=== PATIENT | male | born 2000 | race Caucasian/White ===

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

== ENCOUNTER 2021-01-02 15:12 | Emergency (ER) | payer OTHER ==
[~2021-01-02] VITALS: Ht 170.1 cm; Wt 63.5 kg
[~2021-01-02 15:12] MED LIST changes: +CITALOPRAM HYDR10 MG PO; +HYDROXYZINE PAM25 M1 PO; +OMEPRAZOLE40 MG PO
[2021-01-02 16:39] LABS: BILIRUBIN Negative (Negative); BLOOD 3+ (Negative); CLARITY Clear (Clear); COLOR Yellow (Yellow); GLUCOSE Negative (Negative); KETONE Negative (Negative); LEUKO ESTERASE 2+ (Negative); NITRITE Negative (Negative); PH 5.5 (4.5-8.0); SPECIFIC GRAVITY 1.015 (1.001-1.030)
[2021-01-02 16:43] LABS: HEMATOCRIT 36.7 % (42.0-52.0); MEAN CELL VOLUME 89.5 fl (80.0-94.0); MEAN CORPUSCULAR HGB 29.8 pg (27.0-31.0); MEAN CORPUSCULAR HGB CONC 33.2 g/dl (33.0-37.0); MEAN PLATELET VOLUME 9.4 fl (9.6-12.3); PLATELET COUNT AUTOMATED 207 10*3/uL (130-400); RED CELL DISTRI WIDTH 13.6 % (0-14.5); WHITE BLOOD COUNT 14.7 10*3/uL (4.8-10.8)
[2021-01-02 16:45] LABS: RBC TNTC rbc/hpf (0-2)
[2021-01-02 16:49] LABS: URINE AMPHETAMINES < 1000 (1000ng/ml); URINE BARBITURATES < 200 (200ng/ml); URINE BENZODIAZEPINES < 200 (200ng/ml); URINE CANNABINOIDS (THC) > 50 (50ng/ml); URINE COCAINE < 300 (300ng/ml); URINE METHADONE < 300 (300ng/ml); URINE OPIATES < 300 (300ng/ml)
[2021-01-02 16:50] LABS: URINE PHENCYCLIDINE < 25 (25ng/ml)
[2021-01-02 17:01] LABS: ALBUMIN 2.8 gm/dl (3.1-4.5); BUN 29 mg/dl (7-24); CHLORIDE 106 mmol/L (98-107); CREATININE 1.17 mg/dL (0.70-1.30); POTASSIUM 3.6 mmol/L (3.5-5.1); SGOT/AST 10 IU/L (3-35); SGPT/ALT 35 U/L (12-78); SODIUM 142 mmol/L (136-145); TOTAL PROTEIN 5.6 gm/dL (6.4-8.2)
[2021-01-02 17:03] LABS: ALKALINE PHOSPHATASE 73 U/L (45-117); CPK 19 U/L (39-308)
[2021-01-02 17:08] LABS: ACETAMINOPHEN (TYLENOL) < 5.0 ug/ml (10-30); ETHYL ALCOHOL < 3.0 mg/dl (<3)
[2021-01-02 17:24] LABS: ATYPICAL LYMPHS 2 % (0-0); TOTAL CELLS COUNTED 100 #CELLS
[2021-01-02 17:25] LABS: ACANTHOCYTES FEW; PLATELET SUFFICIENCY NORMAL (NORMAL)
== END 2021-01-02 18:48 | disposition home or self-care (01) ==
LOC: ED 15:12
PROVIDERS: Emergency Medicine
DX: F25.9 Schizoaffective disorder, unspecified (principal)

== ENCOUNTER → 2021-01-16 | Outpatient (CLI) | payer OTHER ==
[~2021-01-16] MED LIST changes: +BUSPIRONE15 MG PO; +DEPAKOTE DR500 MG PO; +GEODON60 MG PO; +TRAZODONE100 MG PO
[2021-01-16 08:07] LABS: HEMATOCRIT 40.7 % (42.0-52.0); MEAN CELL VOLUME 88.9 fl (80.0-94.0); MEAN CORPUSCULAR HGB 30.3 pg (27.0-31.0); MEAN CORPUSCULAR HGB CONC 34.2 g/dl (33.0-37.0); MEAN PLATELET VOLUME 8.9 fl (9.6-12.3); RED BLOOD COUNT 4.58 10*6/uL (4.50-5.90); RED CELL DISTRI WIDTH 13.9 % (0-14.5); WHITE BLOOD COUNT 13.9 10*3/uL (4.8-10.8)
[2021-01-16 08:38] LABS: ALBUMIN 3.4 gm/dl (3.1-4.5); BUN 27 mg/dl (7-24); CHLORIDE 103 mmol/L (98-107); CREATININE 0.84 mg/dL (0.70-1.30); POTASSIUM 3.6 mmol/L (3.5-5.1); SGOT/AST 10 IU/L (3-35); SGPT/ALT 38 U/L (12-78); SODIUM 138 mmol/L (136-145)
[2021-01-16 08:46] LABS: ALKALINE PHOSPHATASE 67 U/L (45-117); THYROID STIM HORMONE (HS) 0.889 uIU/ml (0.358-4.75)
== END | disposition home or self-care (01) ==
LOC: LAB 07:35
PROVIDERS: ATTEND Family Medicine
DX: N20.0 Calculus of kidney (principal); F41.1 Generalized anxiety disorder; F43.8 Other reactions to severe stress; R33.9 Retention of urine, unspecified; E24.9 Cushing's syndrome, unspecified

== ENCOUNTER → 2021-01-27 | Outpatient (CLI) | payer OTHER ==
[2021-01-27 12:38] LABS: HEMATOCRIT 40.9 % (42.0-52.0); MEAN CELL VOLUME 89.1 fl (80.0-94.0); MEAN CORPUSCULAR HGB 30.3 pg (27.0-31.0); MEAN PLATELET VOLUME 8.8 fl (9.6-12.3); RED BLOOD COUNT 4.59 10*6/uL (4.50-5.90); RED CELL DISTRI WIDTH 13.3 % (0-14.5); WHITE BLOOD COUNT 16.5 10*3/uL (4.8-10.8)
[2021-01-28 04:06] LABS: PROLACTIN 40.7 ng/mL (4.0-15.2); THYROID PEROXIDASE (TPO) AB <8 IU/mL (0-26)
[2021-01-28 15:07] LABS: THYROGLOBULIN ANTIBODY <1.0 IU/mL (0.0-0.9)
== END | disposition home or self-care (01) ==
LOC: LAB 11:55
PROVIDERS: ATTEND Family Medicine
DX: D72.829 Elevated white blood cell count, unspecified (principal)

== ENCOUNTER → 2021-01-29 | Outpatient (CLI) | payer OTHER ==
[2021-01-29 09:10] LABS: BILIRUBIN Negative (Negative); BLOOD 1+ (Negative); CLARITY Turbid (Clear); COLOR Yellow (Yellow); GLUCOSE Negative (Negative); KETONE Negative (Negative); LEUKO ESTERASE Negative (Negative); NITRITE Negative (Negative); PH 7.5 (4.5-8.0); SPECIFIC GRAVITY 1.015 (1.001-1.030)
[2021-01-29 09:40] LABS: ALBUMIN 3.3 gm/dl (3.1-4.5); ALKALINE PHOSPHATASE 70 U/L (45-117); BUN 14 mg/dl (7-24); CHLORIDE 105 mmol/L (98-107); CREATININE 0.74 mg/dL (0.70-1.30); POTASSIUM 3.1 mmol/L (3.5-5.1); SGOT/AST 8 IU/L (3-35); SGPT/ALT 41 U/L (12-78); SODIUM 141 mmol/L (136-145); T3 UPTAKE 34 % (31-39); THYROXINE (T4) TOTAL 7.9 ug/dl (4.5-12.1)
[2021-01-29 09:45] LABS: HEMATOCRIT 40.8 % (42.0-52.0); MEAN CELL VOLUME 89.3 fl (80.0-94.0); MEAN CORPUSCULAR HGB 30.4 pg (27.0-31.0); MEAN CORPUSCULAR HGB CONC 34.1 g/dl (33.0-37.0); MEAN PLATELET VOLUME 9.1 fl (9.6-12.3); PLATELET COUNT AUTOMATED 301 10*3/uL (130-400); RED BLOOD COUNT 4.57 10*6/uL (4.50-5.90); RED CELL DISTRI WIDTH 13.4 % (0-14.5); WHITE BLOOD COUNT 15.3 10*3/uL (4.8-10.8)
[2021-01-29 11:08] LABS: TOTAL CELLS COUNTED 100 #CELLS
[2021-01-29 11:09] LABS: PLATELET SUFFICIENCY NORMAL (NORMAL); POLYCHROMASIA SLIGHT
== END | disposition home or self-care (01) ==
LOC: LAB 08:49
PROVIDERS: ATTEND Urology
DX: N20.0 Calculus of kidney (principal); R31.9 Hematuria, unspecified

== ENCOUNTER 2021-01-30 12:13 | Emergency (ER) | payer OTHER ==
[~2021-01-30] VITALS: Ht 167.6 cm; Wt 81.6 kg
[~2021-01-30 12:13] MED LIST changes: -BUSPIRONE15 MG PO; -DEPAKOTE DR500 MG PO; -GEODON60 MG PO; -TRAZODONE100 MG PO
[2021-01-30] MEDS ORDERED: GEODON60 MG PO (12:39)
[2021-01-30] MEDS ORDERED: TRAZODONE100 MG PO (12:40)
[2021-01-30] MEDS ORDERED: BUSPIRONE15 MG PO (12:40)
[2021-01-30] MEDS ORDERED: DEPAKOTE DR500 MG PO (12:40)
[2021-01-30 13:04] LABS: HEMATOCRIT 42.4 % (42.0-52.0); MEAN CELL VOLUME 91.8 fl (80.0-94.0); MEAN CORPUSCULAR HGB 30.5 pg (27.0-31.0); MEAN CORPUSCULAR HGB CONC 33.3 g/dl (33.0-37.0); MEAN PLATELET VOLUME 8.9 fl (9.6-12.3); PLATELET COUNT AUTOMATED 270 10*3/uL (130-400); RED BLOOD COUNT 4.62 10*6/uL (4.50-5.90); RED CELL DISTRI WIDTH 13.5 % (0-14.5); WHITE BLOOD COUNT 15.5 10*3/uL (4.8-10.8)
[2021-01-30 13:22] LABS: ALBUMIN 3.3 gm/dl (3.1-4.5); BUN 20 mg/dl (7-24); CHLORIDE 107 mmol/L (98-107); CREATININE 0.84 mg/dL (0.70-1.30); SGOT/AST 10 IU/L (3-35); SGPT/ALT 41 U/L (12-78); SODIUM 143 mmol/L (136-145)
[2021-01-30 13:23] LABS: BURR CELLS FEW; PLATELET SUFFICIENCY NORMAL (NORMAL); POLYCHROMASIA SLIGHT; TOTAL CELLS COUNTED 100 #CELLS
[2021-01-30 13:24] LABS: ALKALINE PHOSPHATASE 75 U/L (45-117); TOTAL PROTEIN 6.1 gm/dL (6.4-8.2)
[2021-01-30 13:36] LABS: CPK 17 U/L (39-308)
[2021-01-30 13:40] LABS: URINE AMPHETAMINES < 1000 (1000ng/ml); URINE BARBITURATES < 200 (200ng/ml); URINE BENZODIAZEPINES < 200 (200ng/ml); URINE CANNABINOIDS (THC) > 50 (50ng/ml); URINE COCAINE < 300 (300ng/ml); URINE METHADONE < 300 (300ng/ml); URINE OPIATES < 300 (300ng/ml)
[2021-01-30 13:41] LABS: URINE PHENCYCLIDINE < 25 (25ng/ml)
[2021-01-30 13:41] LABS: ETHYL ALCOHOL < 3.0 mg/dl (<3)
[2021-01-30 15:34] LABS: BILIRUBIN Negative (Negative); BLOOD Trace-Intact (Negative); CLARITY Cloudy (Clear); COLOR Yellow (Yellow); GLUCOSE Negative (Negative); KETONE Trace (Negative); LEUKO ESTERASE Negative (Negative); NITRITE Negative (Negative); PH 6.5 (4.5-8.0)
[2021-01-30 15:41] LABS: BACTERIA 1+; EPITHELIAL CELLS 0-2; FINE GRANULAR CAST 0-2
[2021-01-30 15:42] LABS: MUCOUS 3+
== END 2021-01-31 03:11 ==
LOC: ED 12:13
PROVIDERS: Emergency Medicine; Nurse Practitioner Family
DX: F25.9 Schizoaffective disorder, unspecified (principal); Z20.822 Contact with and (suspected) exposure to COVID-19; F32.9 Major depressive disorder, single episode, unspecified

== ENCOUNTER → 2021-02-04 | Outpatient (CLI) | payer OTHER ==
[~2021-02-04] MED LIST changes: +BUSPIRONE15 MG PO; +DEPAKOTE DR500 MG PO; +GEODON60 MG PO; +TRAZODONE100 MG PO
== END | disposition home or self-care (01) ==
LOC: MRI 12:36
PROVIDERS: ATTEND Family Medicine
DX: E22.1 Hyperprolactinemia (principal)

== ENCOUNTER → 2021-02-11 | Outpatient (CLI) | payer OTHER | END | disposition home or self-care (01) | LOC: US 02-03 09:00 → LAB 11:05 | PROVIDERS: ATTEND Urology | DX: N13.30 Unspecified hydronephrosis (principal); N20.0 Calculus of kidney; R31.9 Hematuria, unspecified ==

== ENCOUNTER 2021-02-24 09:58 | Emergency (ER) | payer OTHER ==
[~2021-02-24] VITALS: Ht 165.1 cm; Wt 81.6 kg
[2021-02-24 10:19] LABS: HEMATOCRIT 41.8 % (42.0-52.0); MEAN CELL VOLUME 88.9 fl (80.0-94.0); MEAN CORPUSCULAR HGB 30.4 pg (27.0-31.0); MEAN CORPUSCULAR HGB CONC 34.2 g/dl (33.0-37.0); MEAN PLATELET VOLUME 8.9 fl (9.6-12.3); PLATELET COUNT AUTOMATED 230 10*3/uL (130-400); RED CELL DISTRI WIDTH 12.4 % (0-14.5); WHITE BLOOD COUNT 15.9 10*3/uL (4.8-10.8)
[2021-02-24 10:35] LABS: ALKALINE PHOSPHATASE 67 U/L (45-117); BUN 12 mg/dl (7-24); CHLORIDE 106 mmol/L (98-107); CREATININE 0.59 mg/dL (0.70-1.30); POTASSIUM 3.5 mmol/L (3.5-5.1); SGOT/AST 4 IU/L (3-35); SGPT/ALT 38 U/L (12-78); SODIUM 143 mmol/L (136-145); TOTAL PROTEIN 5.8 gm/dL (6.4-8.2)
[2021-02-24 10:38] LABS: ATYPICAL LYMPHS 1 % (0-0); BURR CELLS FEW; PLATELET SUFFICIENCY NORMAL (NORMAL); POLYCHROMASIA SLIGHT; TOTAL CELLS COUNTED 100 #CELLS
[2021-02-24 10:42] LABS: ACETAMINOPHEN (TYLENOL) < 5.0 ug/ml (10-30); ETHYL ALCOHOL < 3.0 mg/dl (<3)
[2021-02-24 11:18] LABS: BILIRUBIN Negative (Negative); BLOOD Negative (Negative); CLARITY Turbid (Clear); COLOR Yellow (Yellow); GLUCOSE Negative (Negative); KETONE Negative (Negative); LEUKO ESTERASE Negative (Negative); NITRITE Negative (Negative); SPECIFIC GRAVITY 1.015 (1.001-1.030)
[2021-02-24 11:24] LABS: PH > 8.0 (4.5-8.0)
[2021-02-24 11:33] LABS: RBC 0-2 rbc/hpf (0-2); WBC 0-2 wbc/hpf (0-5)
[2021-02-24 12:02] LABS: URINE AMPHETAMINES < 1000 (1000ng/ml); URINE BARBITURATES < 200 (200ng/ml); URINE BENZODIAZEPINES < 200 (200ng/ml); URINE CANNABINOIDS (THC) < 50 (50ng/ml); URINE COCAINE < 300 (300ng/ml); URINE METHADONE < 300 (300ng/ml); URINE OPIATES < 300 (300ng/ml)
[2021-02-24 12:09] LABS: URINE PHENCYCLIDINE < 25 (25ng/ml)
== END 2021-02-24 11:11 | disposition home or self-care (01) ==
LOC: ED 09:58
PROVIDERS: Student in an Organized Health Care Education/Training Program
DX: F25.9 Schizoaffective disorder, unspecified (principal)

== ENCOUNTER → 2021-03-05 | Outpatient (CLI) | payer OTHER | END | disposition home or self-care (01) | LOC: LAB 08:01 | PROVIDERS: ATTEND Internal Medicine | DX: E27.0 Other adrenocortical overactivity (principal); N20.0 Calculus of kidney ==

== ENCOUNTER → 2021-03-11 | Outpatient (CLI) | payer OTHER ==
[2021-03-18 18:07] LABS: BUSHITE 3.79 ratio (0.00-3.00); CALCIUM OXALATE 3.55 ratio (0.00-6.00); CALCIUM, URINE 11.8 mg/dL (Not Estab.); CALCIUM, URINE 283.2 mg/24 hr (0.0-320.0); CITRIC ACID (CITRATE) 163 mg/24 hr (320-1240); MAGNESIUM, URINE 3.2 mg/dL (Not Estab.); MONOSODIUM URATE 8.37 ratio (0.00-4.00); OSMOLALITY, URINE 667 (300-900); SODIUM, URINE 163 mmol/L (Not Estab.); SODIUM, URINE 391 (58-337); STRUVITE 0.53 ratio (0.00-1.00); URIC ACID 0.16 ratio (0.00-1.20); pH 24 HR URINE 7.1 (4.5-8.0)
== END ==
LOC: LAB 13:00
PROVIDERS: ATTEND Urology
DX: R31.9 Hematuria, unspecified (principal); N20.0 Calculus of kidney; E83.50 Unspecified disorder of calcium metabolism

== ENCOUNTER → 2021-03-19 | Outpatient (CLI) | payer OTHER ==
[2021-03-19 08:54] LABS: BUN 12 mg/dl (7-24); CHLORIDE 104 mmol/L (98-107); CREATININE 0.71 mg/dL (0.70-1.30); POTASSIUM 3.6 mmol/L (3.5-5.1); SODIUM 139 mmol/L (136-145)
== END | disposition home or self-care (01) ==
LOC: LAB 08:08
PROVIDERS: ATTEND Internal Medicine
DX: E74.39 Other disorders of intestinal carbohydrate absorption (principal); E27.0 Other adrenocortical overactivity

== ENCOUNTER → 2021-04-22 | Outpatient (CLI) | payer OTHER | END | disposition home or self-care (01) | LOC: LAB 11:45 | PROVIDERS: ATTEND Internal Medicine | DX: E27.0 Other adrenocortical overactivity (principal) ==

== ENCOUNTER → 2021-05-06 | Outpatient (CLI) | payer OTHER ==
[2021-05-06 08:21] LABS: BUN 13 mg/dl (7-24); CHLORIDE 107 mmol/L (98-107); CREATININE 0.63 mg/dL (0.70-1.30); POTASSIUM 3.8 mmol/L (3.5-5.1); SODIUM 138 mmol/L (136-145); URIC ACID 3.1 mg/dL (3.5-7.2)
== END | disposition home or self-care (01) ==
LOC: LAB 07:55
PROVIDERS: ATTEND Internal Medicine
DX: N20.0 Calculus of kidney (principal); E27.0 Other adrenocortical overactivity; E74.39 Other disorders of intestinal carbohydrate absorption

== ENCOUNTER → 2021-07-06 | Outpatient (CLI) | payer OTHER ==
[2021-07-06 08:43] LABS: BUN 14 mg/dl (7-24); CHLORIDE 107 mmol/L (98-107); CREATININE 0.79 mg/dL (0.70-1.30); SODIUM 139 mmol/L (136-145)
== END | disposition home or self-care (01) ==
LOC: LAB 07:46
PROVIDERS: ATTEND Internal Medicine
DX: E24.9 Cushing's syndrome, unspecified (principal)

== ENCOUNTER → 2021-07-28 | Outpatient (CLI) | payer OTHER, MEDICAID | END | disposition home or self-care (01) | LOC: RAD 08:45 | PROVIDERS: ATTEND Family Medicine | DX: K21.9 Gastro-esophageal reflux disease without esophagitis (principal); E66.9 Obesity, unspecified ==

== ENCOUNTER → 2021-08-18 | Outpatient (CLI) | payer OTHER, MEDICAID ==
[2021-08-18 10:25] LABS: CHLORIDE 102 mmol/L (98-107); POTASSIUM 3.4 mmol/L (3.5-5.1); SODIUM 138 mmol/L (136-145)
[2021-08-18 10:35] LABS: ALKALINE PHOSPHATASE 127 U/L (45-117); BUN 11 mg/dl (7-24); CREATININE 0.83 mg/dL (0.70-1.30); SGOT/AST 14 IU/L (3-35); SGPT/ALT 43 U/L (12-78); TOTAL PROTEIN 6.9 gm/dL (6.4-8.2)
== END | disposition home or self-care (01) ==
LOC: LAB 08:11
PROVIDERS: ATTEND Internal Medicine
DX: E74.39 Other disorders of intestinal carbohydrate absorption (principal); E24.9 Cushing's syndrome, unspecified

== ENCOUNTER → 2021-09-25 | Outpatient (CLI) | payer OTHER, MEDICAID ==
[2021-09-25 09:12] LABS: ALKALINE PHOSPHATASE 120 U/L (45-117); BUN 12 mg/dl (7-24); CHLORIDE 109 mmol/L (98-107); CREATININE 0.74 mg/dL (0.70-1.30); POTASSIUM 3.7 mmol/L (3.5-5.1); SGOT/AST 13 IU/L (3-35); SGPT/ALT 40 U/L (12-78); SODIUM 140 mmol/L (136-145); TOTAL PROTEIN 6.4 gm/dL (6.4-8.2); URIC ACID 4.1 mg/dL (3.5-7.2)
== END | disposition home or self-care (01) ==
LOC: LAB 08:00
PROVIDERS: ATTEND Internal Medicine
DX: E24.9 Cushing's syndrome, unspecified (principal); R25.2 Cramp and spasm; I49.9 Cardiac arrhythmia, unspecified; N20.0 Calculus of kidney; E27.0 Other adrenocortical overactivity

== ENCOUNTER 2022-06-02 23:17 | Emergency (ER) | payer OTHER ==
[~2022-06-02] VITALS: Ht 165.1 cm; Wt 77.1 kg
[2022-06-03 00:44] LABS: BASO # 0.1 10*3/uL (0.0-0.1); BASO % 0.5 % (0.0-1.0); EOS # 0.3 10*3/uL (0.0-0.4); EOS % 2.2 % (1.0-4.0); HEMATOCRIT 38.8 % (42.0-52.0); LYMPH % 21.7 % (27.0-41.0); MEAN CELL VOLUME 79.3 fl (80.0-94.0); MEAN CORPUSCULAR HGB 25.8 pg (27.0-31.0); MEAN CORPUSCULAR HGB CONC 32.5 g/dl (33.0-37.0); MEAN PLATELET VOLUME 11.4 fl (9.6-12.3); NEUT # 9.5 10*3/uL (2.3-7.9); NEUT % 68.2 % (47.0-73.0); PLATELET COUNT AUTOMATED 351 10*3/uL (130-400); RED BLOOD COUNT 4.89 10*6/uL (4.50-5.90); RED CELL DISTRI WIDTH 13.2 % (0-14.5); WHITE BLOOD COUNT 13.9 10*3/uL (4.8-10.8)
[2022-06-03 00:55] LABS: ACT PARTIAL THROMBO TIME 30.5 SECONDS (20.0-32.1); INTERNATIONAL NORM RATIO 1.1 (2.0-3.5)
[2022-06-03 01:02] LABS: ALKALINE PHOSPHATASE 88 U/L (46-116); BUN 11 mg/dl (9-23); CHLORIDE 104 mmol/L (98-107); SGPT/ALT 7 U/L (10-49); TOTAL PROTEIN 6.2 gm/dL (6.0-8.0)
== END 2022-06-03 02:09 | disposition left against medical advice (07) ==
LOC: ED 23:17
PROVIDERS: Emergency Medicine
DX: R07.89 Other chest pain (principal); E78.00 Pure hypercholesterolemia, unspecified; Z98.890 Other specified postprocedural states

== ENCOUNTER 2022-07-31 06:54 | Emergency (ER) | payer OTHER ==
[~2022-07-31] VITALS: Ht 165.1 cm; Wt 77.1 kg
[2022-07-31 07:41] LABS: BILIRUBIN Negative (Negative); BLOOD 2+ (Negative); CLARITY Clear (Clear); COLOR Yellow (Yellow); GLUCOSE Negative (Negative); KETONE Negative (Negative); LEUKO ESTERASE Negative (Negative); NITRITE Negative (Negative); PH 6.5 (4.5-8.0); SPECIFIC GRAVITY 1.025 (1.001-1.030)
[2022-07-31 07:41] LABS: BASO # 0.1 10*3/uL (0.0-0.1); BASO % 0.6 % (0.0-1.0); EOS # 0.4 10*3/uL (0.0-0.4); EOS % 4.5 % (1.0-4.0); HEMATOCRIT 38.5 % (42.0-52.0); LYMPH # 3.5 10*3/uL (1.3-4.4); LYMPH % 35.8 % (27.0-41.0); MEAN CORPUSCULAR HGB 25.4 pg (27.0-31.0); MONO # 0.8 10*3/uL (0.1-1.0); MONO % 8.1 % (3.0-9.0); NEUT # 4.9 10*3/uL (2.3-7.9); NEUT % 50.7 % (47.0-73.0); PLATELET COUNT AUTOMATED 326 10*3/uL (130-400); RED CELL DISTRI WIDTH 14.2 % (0-14.5); WHITE BLOOD COUNT 9.7 10*3/uL (4.8-10.8)
[2022-07-31 08:05] LABS: ALKALINE PHOSPHATASE 110 U/L (46-116); BUN 9 mg/dl (9-23); CHLORIDE 108 mmol/L (98-107); POTASSIUM 3.6 mmol/L (3.4-5.1); TOTAL PROTEIN 6.6 gm/dL (6.0-8.0)
[2022-07-31 08:05] LABS: BACTERIA 1+; MUCOUS 1+; RBC 21-30 rbc/hpf (0-2)
[2022-07-31 08:12] LABS: SGPT/ALT < 7 U/L (10-49)
== END 2022-07-31 10:10 | disposition short-term general hospital (02) ==
LOC: ED 06:54
PROVIDERS: Internal Medicine
DX: N13.4 Hydroureter (principal); N13.30 Unspecified hydronephrosis; N20.1 Calculus of ureter; Z98.890 Other specified postprocedural states; E78.00 Pure hypercholesterolemia, unspecified; Z87.442 Personal history of urinary calculi

== ENCOUNTER 2024-04-02 15:34 | Emergency (ER) | payer OTHER ==
[~2024-04-02] VITALS: Ht 167.6 cm; Wt 59.0 kg
[2024-04-02] MEDS ORDERED: SODIUM CHLORIDE 0.9% 1,000 ML IV ONE (15:55)
[2024-04-02] MEDS ORDERED: Ondansetron Hydrochloride 4 MG/2 ML VIAL IV ONE (15:55)
[2024-04-02 16:15] LABS: BASO # 0.1 10*3/uL (0.0-0.1); BASO % 0.4 % (0.0-1.0); EOS # 0.1 10*3/uL (0.0-0.4); EOS % 0.4 % (1.0-4.0); HEMATOCRIT 47.9 % (42.0-52.0); MEAN CELL VOLUME 81.6 fl (80.0-94.0); MEAN CORPUSCULAR HGB 27.6 pg (27.0-31.0); MEAN CORPUSCULAR HGB CONC 33.8 g/dl (33.0-37.0); MEAN PLATELET VOLUME 10.3 fl (9.6-12.3); MONO # 0.5 10*3/uL (0.1-1.0); MONO % 3.3 % (3.0-9.0); NEUT % 85.2 % (47.0-73.0); PLATELET COUNT AUTOMATED 375 10*3/uL (130-400); RED BLOOD COUNT 5.87 10*6/uL (4.50-5.90); RED CELL DISTRI WIDTH 11.8 % (0-14.5); WHITE BLOOD COUNT 14.1 10*3/uL (4.8-10.8)
[2024-04-02 16:36] LABS: ALKALINE PHOSPHATASE 90 U/L (46-116); BUN 15 mg/dl (9-23); CHLORIDE 102 mmol/L (98-107); LIPASE 29 U/L (12-53); SGPT/ALT 15 U/L (5-49); TOTAL PROTEIN 8.2 gm/dL (6.0-8.0)
[2024-04-02] MEDS ORDERED: Metoclopramide Hydrochloride 10 MG/2 ML VIAL IV ONE (17:35)
[2024-04-02] MEDS ORDERED: diphenhydrAMINE hydrochloride 50 MG/ML VIAL IV ONE (17:35)
[2024-04-02] MEDS ORDERED: Ketorolac Tromethamine 30 MG/ML VIAL IV ONE (17:35)
[2024-04-02] MEDS ORDERED: Ondansetron4 MG PO (18:02)
== END 2024-04-02 18:07 | disposition home or self-care (01) ==
LOC: ED 15:34
PROVIDERS: Physician Assistant Medical
DX: K52.9 Noninfective gastroenteritis and colitis, unspecified (principal)

== ENCOUNTER 2024-07-19 07:11 | Emergency (ER) | payer OTHER ==
[~2024-07-19] VITALS: Wt 59.0 kg
[~2024-07-19 07:11] MED LIST changes: +Ondansetron4 MG PO
[2024-07-19] MEDS ORDERED: Ondansetron Hydrochloride 4 MG/2 ML VIAL IV ONE (07:35)
[2024-07-19] MEDS ORDERED: SODIUM CHLORIDE 0.9% 1,000 ML IV ONE (07:35)
[2024-07-19] MEDS ORDERED: IOHEXOL 300 MG/ML 100 ML VIAL IV ONE (07:45)
[2024-07-19 08:00] LABS: BASO # 0.1 10*3/uL (0.0-0.1); BASO % 0.6 % (0.0-1.0); EOS # 0.1 10*3/uL (0.0-0.4); HEMATOCRIT 48.1 % (42.0-52.0); MEAN CELL VOLUME 79.1 fl (80.0-94.0); MEAN CORPUSCULAR HGB 27.8 pg (27.0-31.0); MEAN CORPUSCULAR HGB CONC 35.1 g/dl (33.0-37.0); MEAN PLATELET VOLUME 10.4 fl (9.6-12.3); MONO # 1.1 10*3/uL (0.1-1.0); MONO % 9.3 % (3.0-9.0); NEUT # 8.5 10*3/uL (2.3-7.9); NEUT % 71.4 % (47.0-73.0); PLATELET COUNT AUTOMATED 320 10*3/uL (130-400); RED BLOOD COUNT 6.08 10*6/uL (4.50-5.90); RED CELL DISTRI WIDTH 12.1 % (0-14.5); WHITE BLOOD COUNT 11.9 10*3/uL (4.8-10.8)
[2024-07-19 08:18] LABS: ALKALINE PHOSPHATASE 94 U/L (46-116); BUN 17 mg/dl (9-23); CHLORIDE 99 mmol/L (98-107); LIPASE 65 U/L (12-53); POTASSIUM 3.8 mmol/L (3.4-5.1); SGPT/ALT 59 U/L (5-49); TOTAL PROTEIN 8.1 gm/dL (6.0-8.0)
[2024-07-19] MEDS ORDERED: Ketorolac Tromethamine 30 MG/ML VIAL IV ONE (08:45)
[2024-07-19 08:48] LABS: BILIRUBIN Negative (Negative); BLOOD Negative (Negative); CLARITY Clear (Clear); COLOR Yellow (Yellow); GLUCOSE Negative (Negative); KETONE Trace (Negative); LEUKO ESTERASE Negative (Negative); NITRITE Negative (Negative); SPECIFIC GRAVITY >= 1.030 (1.001-1.030)
[2024-07-19 09:12] LABS: BACTERIA 1+; MUCOUS 1+; RBC 0-2 rbc/hpf (0-2)
[2024-07-19] MEDS ORDERED: MIRALAX POWDER17 G1 PO (09:22)
== END 2024-07-19 09:35 | disposition home or self-care (01) ==
LOC: ED 07:11
PROVIDERS: Internal Medicine
DX: K59.00 Constipation, unspecified (principal); R11.2 Nausea with vomiting, unspecified